=== PATIENT | female | born 1935 | race Caucasian/White ===

== ENCOUNTER 2020-01-14 11:03 | Emergency (ER) | payer MEDICARE, SELFPAY ==
[2020-01-14] VITALS (10 sets, daily range): BP systolic 116–149; BP diastolic 64–90; PULSE 63–79; RESP 17; TEMP 36.5; O2SAT 90–100
--- NOTE | ~2020-01-14 | CT_ITS ---
EXAMINATION: CT brain wo con DATE: 01/14/2020 14:57 INDICATION: Fall with head injury TECHNIQUE: Computed tomography (CT) of the head was performed without intravenous contrast. Sagittal and coronal reconstructions were performed. The mA was adjusted according to patient size. Iterative reconstruction technique was employed. The dose-length product was 605.33 mGy-cm. COMPARISON: head CT dated 06/13/2018 FINDINGS: No fracture. Unchanged small old lacunar infarct at the body of the right caudate nucleus and small c hronic infarct at the right cerebellum. No acute intracranial hemorrhage, acute infarction or abnorma l extra axial fluid collection. There is mild scattered white matter hypoattenuation consistent with chronic small vessel ischemic disease. Symmetric prominence of the sulci consistent with mild age-saud ropriate diffuse cerebral volume loss. Ventricles are normal and symmetric. No mass/mass effect. Post operative change of bilateral mastoidectomies. Increased soft tissue density at the mastoidectomy spa ce now extending around the ossicles at the left middle ear cavity. Unchanged mucous retention cyst i n the left maxillary sinus. Mild mucosal thickening the bilateral ethmoid sinuses. The orbits are nor mal. Intracranial calcified cerebral atherosclerosis is noted. IMPRESSION: 1. No fracture or acute intracranial process. 2. Unchanged small old infarcts in the right cerebellar hemisphere and right caudate nucleus. 3. Bilateral mastoidectomies with increased soft tissue density at the left mastoidectomy space now e xtending around the ossicles in the left middle ear cavity. 4. Age-related changes including mild diffuse volume loss and mild scattered white matter hypoattenua tion consistent with chronic small vessel ischemic disease. Reviewed, dictated and finalized at location B. IMPRESSION: 1. No fracture or acute intracranial process. 2. Unchanged small old infarcts in the right cerebellar hemisphere and right ca udate nucleus. 3. Bilateral mastoidectomies with increased soft tissue density at the left mas toidectomy space now extending around the ossicles in the left middle ear cavit y. 4. Age-related changes including mild diffuse volume loss and mild scattered wh ite matter hypoattenuation consistent with chronic small vessel ischemic diseas e.
--- NOTE | ~2020-01-14 | XR_ITS ---
EXAMINATION: XR shoulder LT min 2V DATE: 01/14/2020 11:51 INDICATION: Left shoulder injury. TECHNIQUE: 4 views of left shoulder were obtained. COMPARISON: None. FINDINGS: Bone alignment is normal. No fracture. There is mild osteoarthritis of glenohumeral joint. Acromioclavicular joint is normal. There are old healed left rib fractures. IMPRESSION: 1. Mild left glenohumeral joint osteoarthritis. Reviewed, dictated and finalized at location A.
--- NOTE | ~2020-01-14 | XR_ITS ---
EXAMINATION: XR shoulder RT min 2V DATE: 01/14/2020 11:51 INDICATION: Right shoulder injury. TECHNIQUE: 4 views of right shoulder were obtained. COMPARISON: None. FINDINGS: Bone alignment is normal. No fracture. There is mild glenohumeral joint osteoarthritis. Acr omioclavicular joint is normal. There are old healed right rib fractures. IMPRESSION: 1. Mild right glenohumeral joint osteoarthritis. Reviewed, dictated and finalized at location A.
--- NOTE | ~2020-01-14 | XR_ITS ---
EXAMINATION: XR hip LT min 2V DATE: 01/14/2020 11:50 INDICATION: Left hip pain. TECHNIQUE: 2 views of left hip were obtained. COMPARISON: Pelvis radiograph 12/27/2013 FINDINGS: There is levoscoliosis of lumbar spine. There are changes of posterior fusion procedure in lumbosacral spine. No fracture. There is mild left hip osteoarthritis. IMPRESSION: 1. Mild left hip osteoarthritis. Reviewed, dictated and finalized at location A.
--- NOTE | 2020-01-14 12:59 | ED.FALL ---
HPI - Fall General Chief Complaint: Fall Stated Complaint: fall Time Seen by Provider: 01/14/20 12:18 Source: patient and EMS Mode of arrival: EMS Limitations: clinical condition History of Present Illness HPI Narrative: 84-year-old female Says she rolled out of bed and both of her shoulders and shoulder blades hurt May have bumped her head but does not have a bruise and does not have a headache or any neurologic symptoms Prehospital notes say her hips hurt she says they do not She otherwise has no complaints Related Data Home Medications Medication Instructions Recorded Confirmed acetaminophen 325 mg PO ONCE PRN 01/14/20 01/14/20 aspirin [Aspir-81] 01/14/20 carbidopa-levodopa 1 tablet PO QID 01/14/20 01/14/20 duloxetine 60 mg PO BID 01/14/20 01/14/20 Allergies Allergy/AdvReac Type Severity Reaction Status Date / Time hydrocodone Allergy Mild Combativene Verified 01/14/20 11:25 ss Sulfa (Sulfonamide Allergy Mild Rash Verified 01/14/20 11:25 Antibiotics) nitrofurantoin Allergy Unknown Rash Verified 01/14/20 11:25 Penicillins Allergy Unknown ITCHING Verified 01/14/20 11:25 Review of Systems Review of Systems: All systems reviewed & are unremarkable except as noted in HPI and below Constitutional: Constitutional: Denies fever(s), Denies headache(s), Denies night sweats and Reports weakness Eyes: Eyes: Denies change in vision, Denies loss of vision and Denies other visual disturbances ENT: Denies headache(s), Denies hoarseness, Denies epistaxis, Denies nasal congestion and Denies sore throat Cardiovascular: Cardiovascular: Denies chest pain, Denies leg edema, Denies palpitations and Denies dyspnea Respiratory: Respiratory: Denies cough, Denies dyspnea and Denies wheezing Gastrointestinal: Gastrointestinal: Denies abdominal pain Genitourinary: Genitourinary: Denies urinary frequency Musculoskeletal: Musculoskeletal: Denies abnormal gait, Denies back pain, Denies deformity, Reports arthralgias, Denies joint swelling, Denies muscle weakness and Denies numbness Integumentary/Breasts: Skin/Breast: Denies rash, Denies unusual bruising and Denies wounds Neurologic: Denies abnormal gait, Denies headache(s), Denies focal weakness and Denies loss of vision Psychiatric: Psychiatric: Reports no additional psychiatric complaints Endocrine: Endocrine: Denies fatigue and Denies palpitations Hematologic/Lymphatic: Hematologic/Lymphatic: Denies easy bleeding and Denies easy bruising Allergic/Immunologic: Allergic/Immunologic: Denies wheezing Exam Const: General: no acute distress, well developed and alert Orientation/consciousness: Other orientation findings (Alert) Other: Elderly, frail HENMT: Head: normocephalic and atraumatic Ears: external ears normal General nose exam: No nasal discharge present and no epistaxis Face and sinus: face symmetric Mouth: Yes lip normal, Yes tongue normal and Yes moist mucous membranes Throat: other (No exudate, no erythema) Other: No scalp hematoma Eyes: Conjunctivae: conjunctivae normal Sclera: sclerae normal EOM: EOMs intact bilaterally Neck: Neck: full ROM and supple Thyroid: thyroid normal Other: No tenderness Chest: Chest palpation & inspection: no tenderness Resp: Effort & Inspection: normal respiratory effort Auscultation: clear to auscultation bilaterally, no rales, no rhonchi, no wheezes and other (breath sounds equal) Cardio: Rate: regular rate Rhythm: regular rhythm Heart sounds: no gallops and no murmurs GI: GI Palp: No abdominal tenderness and Yes Soft to palpation Auscultation: other (bowel sounds present) Back/Spine/Pelvis: Back: no CVA tenderness Cervical Spine: No collar present Thoracic/Lumbar Spine: thoracic and lumbar spine normal to inspection Skin: General skin exam: normal color and no rashes or lesions noted Neuro: General: moves all extremities and no focal motor deficits Cranial nerves: Yes facial symmetry Speech: normal
--- NOTE | 2020-01-14 15:39 | PC.NURSE ---
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
--- NOTE | 2020-01-14 16:48 | PC.NURSE ---
Patients pants wet with urine prior to arrival to ED, patient was dressed,brief changed, and given blue scrub pants to go home in. Patient currently waiting for EMS to arrive for transport back to [place].
== END 2020-01-14 17:10 ==
PROVIDERS: Emergency Provider Emergency Medicine; PCP Nurse Practitioner Adult Health
DX: S40.021A Contusion of right upper arm, initial encounter (principal); M16.12 Unilateral primary osteoarthritis, left hip; M19.012 Primary osteoarthritis, left shoulder; M19.011 Primary osteoarthritis, right shoulder; W06.XXXA Fall from bed, initial encounter
CPT/HCPCS: 70450; 73030; 73502; 99284

== ENCOUNTER → 2020-09-02 02:52 | Outpatient (CLI) | payer MEDICARE, SELFPAY ==
[2020-09-02 18:15] LABS: SARS-CoV-2 RNA PCR Negative
== END ==
PROVIDERS: PCP Nurse Practitioner Adult Health; Visit Provider Urology
DX: Z01.812 Encounter for preprocedural laboratory examination (principal); Z20.822 Contact with and (suspected) exposure to COVID-19
CPT/HCPCS: C9803; U0003; U0005

== ENCOUNTER 2020-09-05 01:47 | Day surgery (SDC) | payer MEDICARE, SELFPAY ==
[2020-08-31 13:40] VITALS: BMI 21.9
--- NOTE | 2020-09-04 19:53 | PM.IMHP ---
H&P: HPI History of Present Illness Date/Time: 09/04/20 19:53 84 yo very frail. Unable to remove pessary. Desires SP tube for complete incontinence Chief Complaint: total urinary incontinence Review of Systems Review of Systems: All systems reviewed & are unremarkable except as noted in HPI and below PMFSH Family History Family History (Updated 09/04/20 @ 20:01 by Zev Bowling MD) Other Heart disease Hypertension Social History Social History Smoking status: Never smoker Spiritual care concerns: No Meds Home Medications and Allergies Home Medications Medication Instructions Recorded Confirmed Type carbidopa-levodopa 3 tablet PO QID 08/31/20 08/31/20 History cholecalciferol (vitamin D3) 25 mcg PO DAILY 08/31/20 08/31/20 History ciprofloxacin-dexamethasone 3 drp LEFT EAR DAILY 08/31/20 08/31/20 History [Ciprodex] meclizine [Travel Sickness 25 mg PO BID PRN 08/31/20 08/31/20 History (meclizine)] melatonin 3 mg PO HS PRN 08/31/20 08/31/20 History midodrine 5 mg PO PRN PRN 08/31/20 08/31/20 History multivit with min-folic acid 1 tablet PO DAILY 08/31/20 08/31/20 History [Adult One Daily Multivitamin] polyethylene glycol 3350 8.5 g PO PRN PRN 08/31/20 08/31/20 History trimethoprim 100 mg PO DAILY 08/31/20 08/31/20 History Allergies Allergy/AdvReac Type Severity Reaction Status Date / Time hydrocodone Allergy Mild Confusion Verified 08/31/20 13:08 Sulfa (Sulfonamide Allergy Mild Itching Verified 08/31/20 13:09 Antibiotics) nitrofurantoin Allergy Unknown Rash Verified 08/31/20 13:10 Penicillins Allergy Unknown ITCHING Verified 08/31/20 13:09 Exam Const: General: cooperative HENMT: Head: normal to inspection Face and sinus: normal facial exam Eyes: General: appearance normal, both eyes and all related structures Resp: Effort & Inspection: normal respiratory effort Assessment and Plan Assessment and plan (1) Vaginal pessary in situ: Code(s): Z96.0 - Presence of urogenital implants Status: Acute Assessment and Plan: removal of pessary (2) Total urinary incontinence: Code(s): N39.498 - Other specified urinary incontinence Status: Acute Assessment and Plan: SP tube
--- NOTE | 2020-09-05 07:25 | WPDHPUPDATE1 ---
History and Physical Update Update Date/Time: 09/05/20 07:25 History and Physical has been reviewed, including an updated exam of the patient. There are NO changes in the patient's condition. Risks, benefits, and alternatives have been discussed and questions answered. Patient agrees to proceed with procedure.
--- NOTE | 2020-09-05 10:15 | WPDHPUPDATE1 ---
History and Physical Update Update Date/Time: 09/05/20 10:15 History and Physical has been reviewed, including an updated exam of the patient. There are NO changes in the patient's condition. Risks, benefits, and alternatives have been discussed and questions answered. Patient agrees to proceed with procedure. Discussed with the daughter. We have opted to only remove her pessary. We will not plan on a suprapubic tube. We will see her back in the office in a few weeks to decide if she needs to have the pessary placed.
--- NOTE | 2020-09-05 10:16 | WPDANESEPPF ---
Anes - Initial Pre Proc Eval Procedure: Operation Date: 09/05/20 11:30 Proposed Procedures p Removal Vaginal Pessary - Zev Bowling MD s Insertion Suprapubic Catheter - Zev Bowling MD Date/Time: 09/05/20 10:16 Surgeon: Zev Bowling MD Pre Op Diagnosis: misplaced pessary Patient Data Age: 84 Gender: F Height: 5 ft 2 in Weight: 54.45 kg Allergies Allergy/AdvReac Type Severity Reaction Status Date / Time hydrocodone Allergy Mild Confusion Verified 08/31/20 13:08 Sulfa (Sulfonamide Allergy Mild Itching Verified 08/31/20 13:09 Antibiotics) nitrofurantoin Allergy Unknown Rash Verified 08/31/20 13:10 Penicillins Allergy Unknown ITCHING Verified 08/31/20 13:09 Home Medications Medication Instructions Recorded Confirmed Type carbidopa-levodopa 3 tablet PO QID 08/31/20 08/31/20 History cholecalciferol (vitamin D3) 25 mcg PO DAILY 08/31/20 08/31/20 History ciprofloxacin-dexamethasone 3 drp LEFT EAR DAILY 08/31/20 08/31/20 History [Ciprodex] meclizine [Travel Sickness 25 mg PO BID PRN 08/31/20 08/31/20 History (meclizine)] melatonin 3 mg PO HS PRN 08/31/20 08/31/20 History midodrine 5 mg PO PRN PRN 08/31/20 08/31/20 History multivit with min-folic acid 1 tablet PO DAILY 08/31/20 08/31/20 History [Adult One Daily Multivitamin] polyethylene glycol 3350 8.5 g PO PRN PRN 08/31/20 08/31/20 History trimethoprim 100 mg PO DAILY 08/31/20 08/31/20 History Patient hx anesthesia problems: none Family hx anesthesia problems: none PMFSH Past Medical History Medical History (Updated 09/05/20 @ 10:12 by Mateo Rosales MD) CVA (cerebral vascular accident) HTN (hypertension) Parkinson disease Family History Family History (Updated 09/04/20 @ 20:01 by Zev Bowling MD) Other Heart disease Hypertension Social History Social History Smoking status: Never smoker Living arrangements: assisted living Spiritual care concerns: No Anes - Eval Final PreProcedure Day of Procedure 09/05/20 10:16 Patient weight: normal Heart: regular rate and rhythm Lungs: clear to auscultation Airway: Mallampati scale class III Neurological: alert and oriented Last oral intake: >/= 8 hours ASA classification: III Emergent: no Anesthetic plan: proceed Anesthesia type and monitoring: general GIVS and standard monitoring Informed Consent: The patient's anesthetic plan and its attendant risks and benefits were discussed with the patient/family/POA. Questions were solicited and answers provided to the satisfaction of the patient/family/POA.
[2020-09-05] MEDS: LACTATED RINGERS 1,000 ML 30 ML IV CONT (10:39)
--- NOTE | 2020-09-05 10:44 | SUR.PREOP ---
[age]- PT LIVES AT [facility]. THE PHARMACY THEY USE IS [facility] [address] [place] [id number]. THIS PHARMACY IS NOT IN OUR SYSTEM. TATYANA HAVE TO BE CALLED IN OR A PAPER SCRIPT. WILL UPDATE DR. LAKE.
[2020-09-05 10:47] VITALS: BP 122/69; PULSE 91; TEMP 36.4; O2SAT 99
[2020-09-05] MEDS: ceFAZolin 2 GM/D5W 50 ML 2 GM/50 ML BAG IVPB (10:56)
[2020-09-05] MEDS: FERRIC SUBSULFATE 8 ML SOLUTION WITH APPLICATOR TOPICAL (11:20)
--- NOTE | 2020-09-05 11:33 | W.PM.PROC2 ---
Procedure Note - Detailed Date of Procedure 09/05/20 Pre-op Diagnosis misplaced pessary T83.9XXA Recurrent urinary tract infections Post-op Diagnosis same Procedure Performed Complex removal of vaginal pessary Cystoscopy Surgeon Zev Bowling MD Anesthesia MAC Indications This patient is noncompliant. She has recurrent UTIs. She has had a pessary in place for the last 18 months. It could not be removed in the office. She will require anesthesia for removal Findings Extensive granulation tissue at the apex of the vagina. Pessary removed. The no clear signs of fistula. Description of Procedure She was correctly identified. Informed consent obtained. Brought the operating room. She was given mac anesthesia. She was prepped and draped in a sterile fashion. Time-out performed. Examination of rather large Gellhorn pessary. It was deep in the vaginal apex. I grabbed the novel with a tenaculum. With much difficulty I was able to get an instrument behind the Da pessary. I was then able to grab the edges with towel clamps. And removed intact. Her vaginal exam. There is significant granulation tissue at the apex of the vagina it was bleeding and oozing. On cystoscopy she had a minimal residual urine of 25 cc. She had a large capacity bladder. There is no fistula to the bladder. There is no tumors. There is no stones. Ureteral orifices were normal. Rectal examination revealed a thin layer of tissue between the vaginal vault in the rectum. There is no clear fistula at this time. But again the tissue was quite thin. I was satisfied with the hemostasis. I did not replace the pessary. She was awakened and transferred to PACU in stable condition. Implants None Estimated Blood Loss 10 Drains No Packing No Pathology none sent Complications No immediate complications Condition stable Disposition PACU
[2020-09-05 11:37] VITALS: BP 141/68; PULSE 79; RESP 16; O2SAT 97
[2020-09-05 12:07] VITALS: BP 146/71; PULSE 83; RESP 16
--- NOTE | 2020-09-05 12:36 | SUR.PHASEII ---
patient's daughter and POA at bedside for discharge instructions, receptive to teaching and verbalized understanding with no further questions.
[2020-09-05 12:37] VITALS: BP 143/71; PULSE 79; RESP 14
[2020-09-05 13:07] VITALS: BP 135/66; PULSE 82; RESP 14
== END 2020-09-05 13:18 | disposition home or self-care (01) ==
PROVIDERS: PCP Nurse Practitioner Adult Health; Visit Provider Urology
PROC: (CPT 57287; principal; 2020-09-05 11:30)
DX: T83.89XA Other specified complication of genitourinary prosthetic devices, implants and grafts, initial encounter (principal); Y83.8 Other surgical procedures as the cause of abnormal reaction of the patient, or of later complication, without mention of misadventure at the time of the procedure; N39.498 Other specified urinary incontinence; Z87.440 Personal history of urinary (tract) infections; Z96.0 Presence of urogenital implants
CPT/HCPCS: 57415; 52000; A9270; J0690; J2704; J7030; J7120

== ENCOUNTER 2020-12-04 08:37 | Observation (INO) | payer MEDICARE, SELFPAY ==
[2020-12-04] VITALS (14 sets, daily range): BP systolic 130–174; BP diastolic 68–89; PULSE 72–101; RESP 14–19; TEMP 36.2–36.7; O2SAT 96–100; BMI 21.2; BMI 19.9
--- NOTE | 2020-12-04 | ECG_ITS ---
Measurements Intervals [place] Rate: 83 P: 43 MI: 166 QRS: -12 QRSD: 103 T: 11 QT: 360 QTc: 425 Interpretive Statements SINUS RHYTHM BORDERLINE T WAVE ABNORMALITY- INFERIOR LEADS BASELINE ARTIFACT- II, III, AVF, V1, V3-V5 BORDERLINE ECG Electronically Signed On 12-04-2020 20:35:01 CDT by Brad Ariza D.O.
--- NOTE | ~2020-12-04 | US_ITS ---
EXAMINATION: US venous doppler [facility] DATE: 12/06/2020 11:32 INDICATION: Bilateral lower limb edema TECHNIQUE: [place] scale images without and with compression and Doppler images of the bilateral lower e xtremity veins were obtained. COMPARISON: None FINDINGS: The right common femoral vein, profunda femoral vein, femoral vein, popliteal vein, peroneal trunk, p osterior tibial veins, and greater saphenous vein are patent. The left common femoral vein, profunda femoral vein, femoral vein, popliteal vein, peroneal trunk, po sterior tibial veins, and greater saphenous vein are patent. IMPRESSION: 1. Patent bilateral lower extremity veins. No evidence of deep venous thrombosis. Reviewed, dictated and finalized at location B. IMPRESSION: 1. Patent bilateral lower extremity veins. No evidence of deep venous thrombosi s.
--- NOTE | ~2020-12-04 | XR_ITS ---
EXAMINATION: XR chest 2V DATE: 12/04/2020 09:25 INDICATION: Left-sided chest pain TECHNIQUE: frontal and lateral views of the chest were obtained. COMPARISON: Chest radiograph dated 07/01/2018 FINDINGS: Mild streaky bibasilar atelectasis/scarring. Blunting at the left posterior sulcus which could repres ent small pleural effusion or additional atelectasis. No pulmonary edema or pneumothorax. Cardiomegal y. Large hiatal hernia. Mild thoracic spondylosis. Chronic bilateral rib fractures. IMPRESSION: 1. Mild bibasilar opacities and favor atelectasis over pneumonia. 2. Possible small left pleural effusion. 3. Cardiomegaly. 4. Large hiatal hernia. Reviewed, dictated and finalized at location A.
[2020-12-04] MEDS: ASPIRIN 81 MG CHEWABLE TABLET 324 MG PO (09:35)
--- NOTE | 2020-12-04 09:42 | ED.GENADULT ---
HPI - General Adult General Chief complaint: Chest Pain Stated complaint: cp Time Seen by Provider: 12/04/20 09:03 Source: patient and RN notes reviewed History of Present Illness HPI narrative: Patient is a 85 y/o female sent from CT for chest pain. She reportedly had chest pain around 8:00 AM this morning, but she denies any chest pain at this time. She states that her pain radiates to her cheek and she rates her pain as 7/10 when it started. There is no known alleviating or exacerbating factor, but her pain resolved spontaneously. She has no cough or SOB. Related Data Home Medications Medication Instructions Recorded Confirmed Adult One Daily Multivitamin 1 tablet PO DAILY 08/31/20 12/04/20 carbidopa-levodopa 2 tablet PO QID 08/31/20 12/04/20 cholecalciferol (vitamin D3) 25 mcg PO DAILY 08/31/20 12/04/20 meclizine 25 mg PO BID PRN 08/31/20 12/04/20 melatonin 3 mg PO HS PRN 08/31/20 12/04/20 midodrine 5 mg PO PRN PRN 08/31/20 12/04/20 polyethylene glycol 3350 8.5 g PO PRN PRN 08/31/20 12/04/20 trimethoprim 100 mg PO HS 08/31/20 12/04/20 alpha lipoic acid 300 mg PO DAILY 12/04/20 12/04/20 aspirin 81 mg PO DAILY 12/04/20 12/04/20 atorvastatin 40 mg PO HS 12/04/20 12/04/20 calcium carbonate-vitamin D3 1 cap PO DAILY 12/04/20 12/04/20 [Calcium 600 + D(3)] docusate sodium 100 mg PO BID 12/04/20 12/04/20 droxidopa [Northera] 100 mg PO TID 12/04/20 12/04/20 duloxetine 60 mg PO DAILY 12/04/20 12/04/20 estradiol 0.25 applic VAGINAL USEASDIRECTD 12/04/20 12/04/20 folic acid 0.8 mg PO DAILY 12/04/20 12/04/20 pantoprazole 40 mg PO QAM 12/04/20 12/04/20 polysaccharide iron complex 150 mg PO DAILY 12/04/20 12/04/20 [iFerex 150] quetiapine 25 mg PO HS 12/04/20 12/04/20 Allergies Allergy/AdvReac Type Severity Reaction Status Date / Time hydrocodone Allergy Mild Confusion Verified 12/04/20 08:44 Sulfa (Sulfonamide Allergy Mild Itching Verified 12/04/20 08:44 Antibiotics) nitrofurantoin Allergy Unknown Rash Verified 12/04/20 08:44 Penicillins Allergy Unknown ITCHING Verified 12/04/20 08:44 Review of Systems Constitutional: Constitutional: Denies chills, Denies fever(s), Denies headache(s) and Denies weakness Eyes: Eyes: Denies blurry vision ENT: Denies headache(s) and Denies neck pain Cardiovascular: Cardiovascular: Reports chest pain and Denies dyspnea Respiratory: Respiratory: Denies cough and Denies dyspnea Gastrointestinal: Gastrointestinal: Denies abdominal pain, Denies diarrhea, Denies nausea and Denies vomiting Genitourinary: Genitourinary: Denies hematuria and Denies dysuria Musculoskeletal: Musculoskeletal: Denies back pain and Denies neck pain Neurologic: Denies headache(s) and Denies weakness [facility] Past Medical History Medical History CVA (cerebral vascular accident) HTN (hypertension) Parkinson disease Family History Family History Other Heart disease Hypertension Social History Social History Smoking status: Never smoker Spiritual care concerns: No Exam Const: General: no acute distress and well developed Orientation/consciousness: oriented to person, oriented to place, oriented to time and patient oriented x3 HENMT: Head: normocephalic Ears: external ears normal General nose exam: Normal external nose present Eyes: General: appearance normal, both eyes and all related structures Conjunctivae: conjunctivae normal Neck: Neck: normal visual inspection and full ROM Chest: Chest palpation & inspection: normal inspection of the chest and no tenderness Resp: Effort & Inspection: normal respiratory effort Auscultation: clear to auscultation bilaterally Cardio: Rate: regular rate Rhythm: regular rhythm GI: GI Palp: No abdominal tenderness and Yes Soft to palpation Skin: General skin exam: normal color and turgor normal Ne
[2020-12-04 09:45] LABS: Basophils Percent Auto 0.5 % (0.2-1.2); Eosinophils Absolute Auto 0.1 K/mm3 (0-0.3); Eosinophils Percent Auto 1.9 % (0-4.4); Hematocrit 45.1 % (37.0-47.0); Hemoglobin 13.1 g/dL (12.0-15.0); Immature Granulocyte Absolute 0.01 K/mm3 (0.00-0.031); Immature Granulocyte Percent A 0.2 % (0-0.5); Lymphocytes Absolute Auto 1.12 K/mm3 (0.9-3.2); Lymphocytes Percent Auto 27.1 % (18.3-44.2); Mean Corpuscular Hemoglobin 30.9 pg (26-34); Mean Corpuscular Volume 106.4 fl (80-100); Mean Platelet Volume 9.7 fl (7.4-10.4); Monocytes Absolute Auto 0.4 K/mm3 (0.1-0.6); Monocytes Percent Auto 9.2 % (2.6-8.5); Neutrophils Absolute Auto 2.5 K/mm3 (1.3-6.7); Neutrophils Percent Auto 61.1 % (45.5-73.1); Platelet Count Result 235 k/mm3 (150-375); Red Blood Count 4.24 M/mm3 (4.2-5.4); White Blood Count 4.1 K/mm3 (4.5-10.0)
[2020-12-04 09:50] LABS: Anion Gap 4 mmol/L (8-16); Blood Urea Nitrogen 17 mg/dL (7-17); Calcium 9.4 mg/dL (8.4-10.2); Carbon Dioxide 31 mmol/L (22-30); Chloride 102 mmol/L (98-107); Estimated Glomerular Filt Rate > 60; Glucose 100 mg/dL (65-110); Potassium 4.4 mmol/L (3.4-5.0); Sodium 137 mmol/L (137-145)
[2020-12-04 09:56] LABS: INR 0.9; Prothrombin Time 12.1 Seconds (11.1-14.7)
[2020-12-04 09:57] LABS: Partial Thromboplastin Time 31.1 SECONDS (22.3-36.8)
[2020-12-04 09:59] LABS: Troponin I < 0.012 ng/mL (0.000-0.034)
[2020-12-04 12:12] LABS: Troponin I < 0.012 ng/mL (0.000-0.034)
[2020-12-04 15:02] LABS: Troponin I < 0.012 ng/mL (0.000-0.034)
--- NOTE | 2020-12-04 15:43 | ADMGEN ---
This patient, Mary Lee, was admitted to IMU Room 232-01. Patient/family oriented to hospital policies and general routines including ID bracelet, bed and alarms, visiting hours, pain management, procedures, bathroom and other care routines, personal items, smoking policy, room service/diet, and visiting hours. Information on how to activate the Rapid Response Team has been discussed. Patient/Family are encouraged to report perceived risks to care and to ask questions if they do not understand what they are told or what they should do.
--- NOTE | 2020-12-04 16:00 | PM.IMHP ---
H&P: HPI History of Present Illness Date/Time: 12/04/20 16:00 Chief Complaint: Chest pain. Narrative: This is a very pleasant 85-year-old female with history of silent myocardial infarction, hypertension, hyperlipidemia, Parkinson with short-term memory loss, and recurrent urinary tract infections who presented to the emergency department earlier today via EMS from [facility] for evaluation of chest pain. The patient tells me that she was fatigued and had a mild headache when she woke this morning and sometime around 08:00 she developed a ?throbbing hurt? in her left anterior chest radiating somewhat into her jaw and teeth associated with mild nausea. Her symptoms were self-limiting and passed within about 20 minutes have not recurred. Given her cardiac history it was felt that it would be appropriate to keep her overnight for closer monitoring however the patient would like to be transferred to [facility] under the care of her duck bill operator, Dr. Andrew Calzada should she require any further testing. It should be noted that the patient's blood pressure has been running high this evening, as high as 172/79, and she and her daughter report that she has had longstanding problems with severe orthostatic hypotension for which she has been taking Northera and midodrine p.r.n. her blood pressures to not typically run that high. At the time my evaluation the patient has no complaints and she has eaten her dinner without issue. She specifically denies chest pain, shortness of breath, nausea, vomiting, and sweats. Review of Systems Review of Systems: Twelve systems were reviewed with pertinent positives and negatives as per HPI. No recent cold or flu symptoms. No sick contacts. She denies racing heart and palpitations. No orthopnea or PND. She frequently has lower extremity edema that will improve overnight. Patient suffers from constipation frequently. Reports nearly total incontinence, previously had a pessary in place though that has since been removed. She denies dysuria. Except as documented, all other systems were reviewed and are negative. FOR[facility]LY [facility], LATER [facility] Past Medical History Medical History (Updated 12/04/20 @ 23:27 by Niurka Boyd PA-C) Chronic anemia Coronary artery disease History of silent [place] per patient report. Patient of Dr. Andrew Calzada at [facility]. COVID-19 (01/2020) Degenerative disc disease Gastroesophageal reflux disease Hearing loss Hyperlipidemia Orthostatic hypotension Parkinson disease Peripheral neuropathy Recurrent urinary tract infection Including history of ESBL E coli colonization. On prophylactic trimethoprim. Short-term memory loss Total urinary incontinence Transient ischemic attack Surgical History Surgical History (Updated 12/04/20 @ 23:20 by Niurka Boyd PA-C) History of cardiac catheterization History of hysterectomy History of lumbar fusion History of tonsillectomy and adenoidectomy History of tubal ligation Family History Family History (Updated 12/04/20 @ 23:22 by Niurka Boyd PA-C) Other Breast cancer Heart disease Hypertension Social History Social History (Updated 12/04/20 @ 23:22 by Niurka Boyd PA-C) Social History: The patient is a resident at [facility]. She is and has 3 daughters. Lifelong nonsmoker. No alcohol or illicit substance use. Her daughter Mohsen oswald is her healthcare power of commercial litigation attorney. Code status: Full code. Meds Home Medications and Allergies Home Medications Medication Instructions Recorded Confirmed Type Adult One Daily Multivitamin 1 tablet PO DAILY 08/31/20 12/04/20 History carbidopa-levodopa 2 tablet PO QID 08/31/20 12/04/20 History cholecalciferol (vitamin D3) 25 mcg PO DAILY 08/31/20 12/04/20 History meclizine 25 mg PO BID PRN 08/31/20 12/04/20 History melatonin 3 mg PO HS PRN 08/31/20 12/04/20 History midodrine 5 mg PO PRN PRN 08/31/20 12/04/20 History polyethylene glycol 3350 8.5 g PO PRN PRN 08/31/20 12/04/20 Hi
--- NOTE | 2020-12-04 17:41 | PHAR ---
HOME MEDICATION VERIFIED BY PHARMACY: NORTHERA 100MG ONLY #4 CAPSULES SENT TO PHARMACY - NOT IN AN RX VIAL.
[2020-12-04] MEDS: ATORVASTATIN 40 MG TABLET PO (20:06)
[2020-12-04] MEDS: TRIMETHOPRIM 100 MG TABLET PO (20:07)
[2020-12-04] MEDS: QUEtiapine FUMARATE 25 MG TABLET PO (20:07)
[2020-12-04] MEDS: CARBIDOPA/LEVODOPA 25/100 MG TABLET 2 TABLET PO (20:07)
[2020-12-05] VITALS (16 sets, daily range): BP systolic 96–148; BP diastolic 55–90; PULSE 85–108; RESP 12–16; TEMP 36.4–37.1; O2SAT 98–100
[2020-12-05 05:46] LABS: Anion Gap 6 mmol/L (8-16); Blood Urea Nitrogen 15 mg/dL (7-17); Carbon Dioxide 30 mmol/L (22-30); Chloride 103 mmol/L (98-107); Estimated CRCL calculation 34 ml/min; Estimated Glomerular Filt Rate 60; Glucose 96 mg/dL (65-110); Potassium 3.8 mmol/L (3.4-5.0); Sodium 139 mmol/L (137-145)
[2020-12-05] MEDS: FOLIC ACID 0.4 MG TABLET 0.8 MG PO (09:03)
[2020-12-05] MEDS: ESTRADIOL VAGINAL CREAM 42.5 GM 0.25 APPLIC VAGINAL (09:03)
[2020-12-05] MEDS: CHOLECALCIFEROL 1,000 UNITS TABLET 1000 UNITS PO (09:03)
[2020-12-05] MEDS: ASPIRIN 81 MG CHEWABLE TABLET PO (09:04)
[2020-12-05] MEDS: THERAPEUTIC MULTIVITAMINS/MINERALS TAB (*BKC) 1 TABLET PO (09:04)
[2020-12-05] MEDS: POLYSACCHARIDE IRON COMPLEX 150 MG CAPSULE PO ×2 (09:04→17:51)
[2020-12-05] MEDS: DOCUSATE SODIUM 100 MG CAPSULE PO ×2 (09:04→17:51)
[2020-12-05] MEDS: PANTOPRAZOLE 40 MG TABLET PO (09:04)
[2020-12-05] MEDS: CARBIDOPA/LEVODOPA 25/100 MG TABLET 2 TABLET PO ×4 (09:05→20:20)
[2020-12-05] MEDS: DULoxetine HCL 60 MG CAPSULE.DR PO (09:05)
[2020-12-05] MEDS: ACETAMINOPHEN 325 MG TABLET 650 MG PO ×2 (10:47→20:21)
[2020-12-05 11:25] LABS: Folic Acid > 20.0 ng/mL (2.76->20); Vitamin B12 > 1000.0 pg/mL (239-931)
--- NOTE | 2020-12-05 14:57 | PM.IMPN ---
Progress Note: A&P Assessment and Plan (1) Chest pain: Qualifiers: Chest pain type: unspecified Qualified Code(s): R07.9 - Chest pain, unspecified Code(s): R07.9 - Chest pain, unspecified Status: Acute Assessment and Plan: Patient reports a headache and jaw pain then chest pain while at rest. Her symptoms resolved within about 20 minutes. EKG shows no acute ST segment changes and her troponins negative x3. She has not had any further episodes of chest pain since admissin. [place] atypical chest pain. Family wishes her to be transferred to [facility] if further cardiac evaluation required but feel she can be discharged with followup with her gas dispatcher as outpatient. Will keep overnight due to her weakness. Will discuss with her Assistant Professor Surgical Technology tomorrow. Start PT/OT. Increase activity. (2) Orthostatic hypotension: Code(s): I95.1 - Orthostatic hypotension Status: Acute Assessment and Plan: Blood pressures were reviewed. Patient may take her droxidopa from home. Will continue to monitor blood pressures closely. Add Tashi spear. (3) Parkinson disease: Code(s): G20 - Parkinson's disease Status: Chronic Assessment and Plan: Stable. Continue carbidopa-levodopa. PT/OT. Increase activity (4) Coronary artery disease: Code(s): I25.10 - Atherosclerotic heart disease of [place] coronary artery without angina pectoris Status: Chronic Assessment and Plan: As above. Continue medical management with aspirin and statin. Probably no beta-breana due to her orthostatic HoTN. (5) DVT prophylaxis: Code(s): Z29.9 - Encounter for prophylactic measures, unspecified Status: Acute Assessment and Plan: SCDs Subjective Date/time seen: 12/05/20 14:57 Interval history: 85yo female with Parkinson Disease here for chest pain. Complained to staff about arm pain but not present this morning at the time of this evaluation. Complains of headache and abdominal pain due to needing to use the bathroom. No chest pain. Last stress test was 4-5 years ago. Was seen later in the day as well. Staff state patient having difficulty transferring to bedside commode and chair. Patient states the chest pain was 'throbbing' and occurred when she was being wheeled to breakfast. She states that it started with headache and then moved to her jaw with bilateral jaw pain before she began with the chest discomfort. Exam Narrative: AF 98.3 132/73 106 12 99% ra Gen - NARD Chest - CTA bilaterally, nml RR CV - RRR S1/S2; Tele showing PVCs. Abd - Soft, NT/ND, Positive BS Ext - trace pedal edema, 2+ DP Neuro - Alert and oriented x4. Nonfocal exam. OHKAY OWINGEH. Psych - Nml mood and affect Skin - Warm and dry Objective Data Vital Signs Vital Signs: Vital Signs - 24 hr 12/04/20 15:17 12/04/20 15:35 12/04/20 16:00 Temperature 97.1 F L Pulse Rate 87 87 87 Respiratory Rate 18 Blood Pressure 152/80 H 172/79 H Pulse Oximetry 99 97 12/04/20 16:46 12/04/20 18:00 12/04/20 20:00 Temperature 98.1 F 97.2 F L Pulse Rate 88 92 101 H Respiratory Rate 14 18 Blood Pressure 157/78 H 171/87 H Pulse Oximetry 100 97 12/04/20 22:00 12/05/20 00:00 12/05/20 02:00 Temperature 97.6 F Pulse Rate 91 88 92 Respiratory Rate 16 Blood Pressure 114/55 L Pulse Oximetry 99 12/05/20 03:44 12/05/20 04:00 12/05/20 06:00 Temperature 97.9 F Pulse Rate 98 85 92 Respiratory Rate 16 16 Blood Pressure 148/81 H Pulse Oximetry 99 100 12/05/20 08:00 12/05/20 10:00 12/05/20 11:51 Temperature 98.2 F 98.3 F Pulse Rate 90 108 H 105 H Respiratory Rate 12 12 Blood Pressure 144/90 H 132/73 Pulse Oximetry 98 99 12/05/20 12:00 12/05/20 14:00 Temperature Pulse Rate 104 H 106 H Respiratory Rate Blood Pressure Pulse Oximetry Intake/Output Intake/Output: Intake & Output 12/02/20 12/03/20 12/04/20 12/05/20 23:59 23:59 23:59 23:59
[2020-12-05] MEDS: TRIMETHOPRIM 100 MG TABLET PO (20:20)
[2020-12-05] MEDS: ATORVASTATIN 40 MG TABLET PO (20:21)
[2020-12-05] MEDS: MELATONIN 3 MG TABLET PO (20:21)
[2020-12-05] MEDS: QUEtiapine FUMARATE 25 MG TABLET PO (20:22)
[2020-12-06] VITALS (10 sets, daily range): BP systolic 121–143; BP diastolic 75–84; PULSE 86–108; RESP 12–20; TEMP 36.6–36.9; O2SAT 92–100; BMI 19.5
[2020-12-06] MEDS: ACETAMINOPHEN 325 MG TABLET 650 MG PO (08:13)
[2020-12-06] MEDS: DOCUSATE SODIUM 100 MG CAPSULE PO (09:14)
[2020-12-06] MEDS: PANTOPRAZOLE 40 MG TABLET PO (09:15)
[2020-12-06] MEDS: CARBIDOPA/LEVODOPA 25/100 MG TABLET 2 TABLET PO ×2 (09:15→14:04)
[2020-12-06] MEDS: FOLIC ACID 0.4 MG TABLET 0.8 MG PO (09:15)
[2020-12-06] MEDS: THERAPEUTIC MULTIVITAMINS/MINERALS TAB (*BKC) 1 TABLET PO (09:15)
[2020-12-06] MEDS: POLYSACCHARIDE IRON COMPLEX 150 MG CAPSULE PO (09:15)
[2020-12-06] MEDS: DULoxetine HCL 60 MG CAPSULE.DR PO (09:16)
[2020-12-06] MEDS: ASPIRIN 81 MG CHEWABLE TABLET PO (09:16)
[2020-12-06] MEDS: CHOLECALCIFEROL 1,000 UNITS TABLET 1000 UNITS PO (09:16)
--- NOTE | 2020-12-06 13:44 | PM.DS ---
DS: Admitting Diagnosis Discharge Date 12/06/2020 Admitting Diagnosis Chest pain DS: Discharge Diagnosis Discharge Diagnosis (1) Chest pain: Qualifiers: Chest pain type: unspecified Qualified Code(s): R07.9 - Chest pain, unspecified Code(s): R07.9 - Chest pain, unspecified Status: Acute Assessment and Plan: Prior to admission, patient reported having a headache and jaw pain then chest pain while at rest. Her symptoms resolved within about 20 minutes. EKG shows no acute ST segment changes and her troponins were negative x3. Shedid not had any further episodes of chest pain since admission. Family wished for the patient to be transferred to [facility] if further cardiac evaluation required but felt that she can be discharged with followup with her senior catering sales manager as outpatient. Spoke with Dr Belle's DYNAMICIST (Imani Hein) and hospital course and planned discharge today was discussed. She stated that she will call the patient's daughter at the end of the week to set up a stress test. (2) Orthostatic hypotension: Code(s): I95.1 - Orthostatic hypotension Status: Acute Assessment and Plan: Blood pressures were reviewed. Patient may take her droxidopa from home. We continued to monitor blood pressures closely. We added Tashi spear. (3) Parkinson disease: Code(s): G20 - Parkinson's disease Status: Chronic Assessment and Plan: Patient remained stable. We continued her carbidopa-levodopa. We had PT/OT evaluate the patient. Care coordination spoke with the skilled facility and they felt patient was at baseline and agreed to accept her back. (4) Coronary artery disease: Code(s): I25.10 - Atherosclerotic heart disease of [place] coronary artery without angina pectoris Status: Chronic Assessment and Plan: As above. We continued medical management with aspirin and statin. Probably no beta-breana due to her orthostatic HoTN. DS: Summary Hospital Course Reason for hospitalization: 85yo female with Parkinson Disease here for chest pain. Please see H&P for details. Hospital Course: Please see above for details of hospital course Status at Discharge Cognitive/behavioral status at discharge: Stable Time Spent with Patient Time attestation: Total time spent providing and/or coordinating discharge services: 35 minutes Time spent: Greater than 30 minutes Exam Narrative: AF 98.2 121/84 97 14 97% ra Gen - NARD Chest - few scattered rhonchi CV - RRR S1/S2; Tele showing PVCs. Abd - Soft, NT/ND, Positive BS Ext - no pedal edema Psych - Nml mood and affect Skin - Warm and dry Discharge Plan Discharge Attending physician on discharge: Ramy Gardner Discharging Clinician: Ramy Gardner Anticipated Discharge Date/Time: 12/06/20 13:53 Patient Disposition: [facility] Living Activity: as tolerated Diet: heart healthy Discharge Instructions: Please avoid large gathering, wear face coverings in public and practice social distance. Check blood pressure 1 to 2 times a day. Record and bring into your doctor for review. Call your doctor if your blood pressure is greater than 180/110 or less than 95/45. Take precautions to avoid falls. Rise slowly from a lying or sitting position. Pause before standing or walking. Contact your doctor or call 911 and come to the Emergency Room if you have any recurrent chest pain or other worrisome symptoms. Avoid NSAIDs (ibuprofen, naproxen, Aleve). Tylenol is safe to take. Follow-up with your senior catering sales manager. He will be calling you to set up an appointment. Follow-up with your primary care doctor in 1-2 weeks. Please call for an appointment Tashi hose on in the morning and off at night Patient Instructions: Antibiotic Form Stand Alone Forms: General Discharge Information Follow-up/Referrals: Liban,YAS Bonner [Primary Care Provider] - Call for Appointment Discha
--- NOTE | 2020-12-06 15:47 | PC.NURSE ---
Left VM for daughter at 1500 to see if she can lease picker patient to bring to her facility. Notified Maral at [facility] re: discharge and gave report.
== END 2020-12-06 13:58 ==
LOC: ANHED 09:50 → ANHIMU 12-06 13:58
PROVIDERS: Physician Assistant; Admitting Provider Internal Medicine; Emergency Provider Emergency Medicine; PCP Nurse Practitioner Adult Health; Visit Provider Internal Medicine
DX: R07.9 Chest pain, unspecified (principal); I95.1 Orthostatic hypotension; G20 Parkinson's disease; I10 Essential (primary) hypertension; I25.10 Atherosclerotic heart disease of native coronary artery without angina pectoris; R60.0 Localized edema; K21.9 Gastro-esophageal reflux disease without esophagitis; D64.9 Anemia, unspecified; Z86.16 Personal history of COVID-19; E78.5 Hyperlipidemia, unspecified; G62.9 Polyneuropathy, unspecified; R32 Unspecified urinary incontinence; Z98.1 Arthrodesis status; Z79.82 Long term (current) use of aspirin; Z86.73 Personal history of transient ischemic attack (TIA), and cerebral infarction without residual deficits
CPT/HCPCS: 36415; 71046; 80048; 82607; 82746; 83735; 84443; 84484; 85025; 85610; 85730; 93005; 93970; 97161; 97165; 99285; A9270; G0378

== ENCOUNTER 2021-03-06 05:44 | Emergency (ER) | payer MEDICARE, SELFPAY ==
[2021-03-06] VITALS (25 sets, daily range): BP systolic 105–180; BP diastolic 56–101; PULSE 74–98; RESP 10–22; TEMP 36.7; O2SAT 94–98
--- NOTE | ~2021-03-06 | XR_ITS ---
EXAMINATION: XR chest 1V portable DATE: 03/06/2021 05:58 INDICATION: Left-sided chest pain. TECHNIQUE: A single frontal view of the chest was obtained. COMPARISON: Chest 2 views 01/03/2021, CT abdomen and pelvis 07/06/2015 FINDINGS: There is a large hiatal hernia. There is mild atelectasis in the lower lung zones. No pleur al effusion or pneumothorax. The heart size is normal. There are old healed left rib fractures. IMPRESSION: 1. Large hiatal hernia. 2. Mild atelectasis in the lower lung zones. Reviewed, dictated and finalized at location A. BOAT ENGINEER
--- NOTE | 2021-03-06 05:39 | ECG_ITS ---
Measurements Intervals [place] Rate: 98 P: 24 MD: 147 QRS: -16 QRSD: 102 T: 27 QT: 329 QTc: 420 Interpretive Statements SINUS RHYTHM DELAYED PRECORDIAL R/S TRANSITION BORDERLINE T WAVE ABNORMALITY- INFERIOR LEADS BASELINE ARTIFACT- I, II, III, AVR, AVL, AVF, V4 BORDERLINE ECG Electronically Signed On 03-06-2021 7:40:02 DIRECTOR CLIENT SERVICES by Brad Ariza D.O.
[2021-03-06 06:23] LABS: Basophils Percent Auto 0.2 % (0.2-1.2); Eosinophils Absolute Auto 0.1 K/mm3 (0-0.3); Eosinophils Percent Auto 2.9 % (0-4.4); Hematocrit 39.4 % (37.0-47.0); Hemoglobin 12.8 g/dL (12.0-15.0); Immature Granulocyte Absolute 0.01 K/mm3 (0.00-0.031); Immature Granulocyte Percent A 0.2 % (0-0.5); Lymphocytes Absolute Auto 1.18 K/mm3 (0.9-3.2); Lymphocytes Percent Auto 24.2 % (18.3-44.2); Mean Corpuscular HGB Conc 32.5 g/dl (32-36); Mean Corpuscular Hemoglobin 32.4 pg (26-34); Mean Corpuscular Volume 99.7 fl (80-100); Mean Platelet Volume 10.2 fl (7.4-10.4); Monocytes Absolute Auto 0.5 K/mm3 (0.1-0.6); Monocytes Percent Auto 9.6 % (2.6-8.5); Neutrophils Absolute Auto 3.1 K/mm3 (1.3-6.7); Neutrophils Percent Auto 62.9 % (45.5-73.1); Platelet Count Result 285 k/mm3 (150-375); Red Blood Count 3.95 M/mm3 (4.2-5.4); Red Cell Distribution Width 12.7 % (11.5-14.5); White Blood Count 4.9 K/mm3 (4.5-10.0)
[2021-03-06 06:33] LABS: INR 0.9; Partial Thromboplastin Time 29.7 SECONDS (22.3-36.8); Prothrombin Time 12.3 Seconds (11.1-14.7)
[2021-03-06 06:36] LABS: Alanine Aminotransferase 11 U/L (4-35); Alkaline Phosphatase 68 U/L (38-126); Anion Gap 6 mmol/L (8-16); Aspartate Amino Transferase 43 U/L (14-36); Bilirubin,Total 0.8 mg/dL (0.2-1.3); Blood Urea Nitrogen 25 mg/dL (7-17); Calcium 9.3 mg/dL (8.4-10.2); Carbon Dioxide 30 mmol/L (22-30); Chloride 104 mmol/L (98-107); Estimated CRCL calculation 41 ml/min; Estimated Glomerular Filt Rate > 60; Glucose 96 mg/dL (65-110); Lipase 59 U/L (23-300); Potassium 4.1 mmol/L (3.4-5.0); Sodium 140 mmol/L (137-145)
[2021-03-06 06:57] LABS: Troponin I < 0.012 ng/mL (0.000-0.034)
--- NOTE | 2021-03-06 07:04 | ED.CHESTPAIN ---
HPI - Chest Pain General Chief Complaint: Chest Pain <Duc Goodamn MD - Last Filed: 03/06/21 08:20> Stated Complaint: chest pain <Duc Goodman MD - Last Filed: 03/06/21 08:20> Time Seen by Provider: 03/06/21 05:45 <Duc Goodman MD - Last Filed: 03/06/21 08:20> Source: patient <Duc Goodman MD - Last Filed: 03/06/21 08:20> History of Present Illness HPI narrative: Patient with a history of hyperlipidemia Parkinson's and CAD, presents with chest pain. Reports she was getting out of bed to use the restroom and attendant went to assist her when they were assisting her she developed left-sided chest pain. Reports history of reflux but this is different than her typical reflux. Pain is pressure and resolved after EMS gave nitro and aspirin. Pain is more intense than prior episodes of pain she has had. There is no radiation is not associated with shortness of breath she denies any nausea vomiting or diaphoresis <Duc Goodman MD - Last Filed: 03/06/21 08:20> Related Data Home Medications: Home Medications Medication Instructions Recorded Confirmed Adult One Daily Multivitamin 1 tablet PO DAILY 08/31/20 12/04/20 carbidopa-levodopa 2 tablet PO QID 08/31/20 12/04/20 cholecalciferol (vitamin D3) 25 mcg PO DAILY 08/31/20 12/04/20 meclizine 25 mg PO BID PRN 08/31/20 12/04/20 melatonin 3 mg PO HS PRN 08/31/20 12/04/20 midodrine 5 mg PO PRN PRN 08/31/20 12/04/20 polyethylene glycol 3350 8.5 g PO PRN PRN 08/31/20 12/04/20 trimethoprim 100 mg PO HS 08/31/20 12/04/20 Calcium 600 + D(3) 1 cap PO DAILY 12/04/20 12/04/20 alpha lipoic acid 300 mg PO DAILY 12/04/20 12/04/20 aspirin 81 mg PO DAILY 12/04/20 12/04/20 atorvastatin 40 mg PO HS 12/04/20 12/04/20 docusate sodium 100 mg PO BID 12/04/20 12/04/20 droxidopa [Northera] 100 mg PO TID 12/04/20 12/04/20 duloxetine 60 mg PO DAILY 12/04/20 12/04/20 estradiol 0.25 applic VAGINAL USEASDIRECTD 12/04/20 12/04/20 folic acid 0.8 mg PO DAILY 12/04/20 12/04/20 pantoprazole 40 mg PO QAM 12/04/20 12/04/20 polysaccharide iron complex 150 mg PO DAILY 12/04/20 12/04/20 [iFerex 150] quetiapine 25 mg PO HS 12/04/20 12/04/20 <Duc Goodman MD - Last Filed: 03/06/21 08:20> Allergies/Adverse Reactions: Allergies Allergy/AdvReac Type Severity Reaction Status Date / Time hydrocodone Allergy Mild Confusion Verified 12/04/20 08:44 Sulfa (Sulfonamide Allergy Mild Itching Verified 12/04/20 08:44 Antibiotics) nitrofurantoin Allergy Unknown Rash Verified 12/04/20 08:44 Penicillins Allergy Unknown ITCHING Verified 12/04/20 08:44 <Duc Goodman MD - Last Filed: 03/06/21 08:20> Review of Systems Review of Systems: CONSTITUTIONAL: Denies fever, chills, or sweats. EYES: Denies visual changes, redness, or discharge. ENT: Denies rhinorrhea, congestion, sore throat, or otalgia. CARDIOVASCULAR: Denies palpitations, or edema. RESPIRATORY: Denies cough or dyspnea. GASTROINTESTINAL: Denies abdominal pain, nausea, vomiting, or diarrhea. GENITOURINARY: Denies dysuria or hematuria. SKIN: Denies rash or itching. MUSCULOSKELETAL: Denies back pain, joint pain, or myalgia. NEUROLOGIC: Denies headache, numbness, dizziness, or weakness. PSYCHIATRIC: Denies anxiety or depression. <Duc Goodman MD - Last Filed: 03/06/21 08:20> All systems reviewed & are unremarkable except as noted in HPI and below <Duc Goodman MD - Last Filed: 03/06/21 08:20> PMFSH Past Medical History Medical History: Medical History Chronic anemia Coronary artery disease History of silent [place] per patient report. Patient of Dr. Andrew Calzada at [facility] COVID-19 (01/2020) Degenerative disc disease Gastroesophageal reflux disease Hearing loss Hyperlipidemia Orthostatic hypotension Parkinson disease Peripheral neuropathy Recurrent urinary tract infection Including history of ESBL E coli colonization. O
--- NOTE | 2021-03-06 07:50 | PC.NURSE ---
Paperwork faxed to [facility] per their request
[2021-03-06 09:23] LABS: Troponin I < 0.012 ng/mL (0.000-0.034)
[2021-03-06 10:12] LABS: EDCOVIDSCREEN Negative (Negative)
[2021-03-06 12:03] LABS: Troponin I < 0.012 ng/mL (0.000-0.034)
--- NOTE | 2021-03-06 13:06 | PC.NURSE ---
made contact with [facility] to transfer pt to [facility] rm [id number]. eta [id number]
== END 2021-03-06 14:08 | disposition short-term general hospital (02) ==
PROVIDERS: Emergency Medicine; Emergency Provider Emergency Medicine; PCP Nurse Practitioner Adult Health
DX: Z20.822 Contact with and (suspected) exposure to COVID-19 (principal); I20.0 Unstable angina; I25.2 Old myocardial infarction; K21.9 Gastro-esophageal reflux disease without esophagitis; G20 Parkinson's disease; Z86.16 Personal history of COVID-19
CPT/HCPCS: 36415; 71045; 80053; 83690; 84484; 85025; 85610; 85730; 87426; 93005; 99285; C9803